=== PATIENT | female | born 1990 | race American Indian/Alaskan Native ===

== ENCOUNTER 2017-03-11 13:30 | Emergency (ER) | payer MEDICAID ==
[2017-03-11 14:36] LABS: Basophils % (Auto) 0.5 % (0.0-1.8); Eosinophils % (Auto) 1.2 % (0.0-4.3); Hemoglobin 13.3 gm/dl (10.1-14.3); Mean Corpuscular HGB Conc 33 % (30-34); Mean Corpuscular Hemoglobin 28 pg (28-32); Mean Corpuscular Volume 85 fl (79-97); Platelet Count 339 K/mm3 (140-440); Red Blood Count 4.83 M/mm3 (3.65-5.03); Red Cell Distribution Width 14.6 % (13.2-15.2); White Blood Count 4.3 K/mm3 (4.5-11.0)
[2017-03-11 14:59] LABS: Anion Gap 21 mmol/L; Blood Urea Nitrogen 15 mg/dL (7-17); Calcium 9.7 mg/dL (8.4-10.2); Carbon Dioxide 22 mmol/L (22-30); Glucose 80 mg/dL (65-100); Potassium 3.8 mmol/L (3.6-5.0); Sodium 139 mmol/L (137-145)
--- NOTE | 2017-03-11 15:43 | Cat Scan Report ---
CT HEAD WITHOUT CONTRAST: HISTORY: Headache. Ventriculoperitoneal shunt is unchanged since 02/06/16. Left parietal portion of the shunt terminates in the right frontal horn. There is no evidence for hydrocephalus. The brain parenchyma attenuation is within normal limits. There is no evidence for hemorrhage, mass or extra-axial fluid collection. No areas of ischemia are appreciated on noncontrast CT. 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 The paranasal sinuses and mastoid air cells are clear. IMPRESSION: No acute intracranial process. No significant change since 02/06/16.
[2017-03-11] MEDS ORDERED: TYLENOL PO ONE (20:38)
[2017-03-11 20:39] VITALS: BP 147/88
== END 2017-03-12 01:15 | disposition left against medical advice (07) ==
LOC: ED 13:30
DX: R51 Headache (principal); Z53.21 Procedure and treatment not carried out due to patient leaving prior to being seen by health care provider
CPT/HCPCS: 36415; 70450; 80048; 84703; 85025

== ENCOUNTER 2017-03-12 13:56 | Emergency (ER) | payer MEDICAID ==
[2017-03-12 14:27] VITALS: BP 141/96
[2017-03-12] MEDS ORDERED: MOTRIN PO ONE (15:24)
[2017-03-12] MEDS ORDERED: DELTASONE PO ONE (15:24)
[2017-03-12] MEDS ORDERED: REGLAN PO ONE (15:24)
[2017-03-12] MEDS ORDERED: BENADRYL PO ONE (15:24)
--- NOTE | 2017-03-12 15:30 | Emergency Department Report ---
ED Headache HPI - General Chief Complaint: Headache Stated Complaint: HEADACHE/SHUNT Time Seen by Provider: 03/12/17 15:20 Source: patient, RN notes reviewed Exam Limitations: no limitations - History of Present Illness Initial Comments: pt is a 27 y/o aaf with hx of left side HRBP , since childhood, who presents for headache recurring for past week , hx of same intermittent for past 10 yrs previously treated with fioricet po prn headache, pt edvised 12/22 left side headache some location duration and intensity as other headaches of past, pt seen in ed for same on yesterday but have to leave with ride home, presents today for finish evaluation , there has been no change in symptoms x improvement in pain level from 02/21 to 12/22 there is no dizziness no lightheadedness no n/v no syncope. Quality: moderate, achy, sharp Head Injury Location: parietal Recent Head Trauma: no recent headache/trauma, frequent headaches, chronic headaches Modifying Factors: improves with: other (none) Associated Symptoms: denies: denies symptoms, confusion, fatigue, facial pain, fever/chills, flushing, loss of consciousness, nausea/vomiting, nasal congestion , nasal drainage, numbness in legs/feet, seizures, sinus infection, stiff neck, vision changes, weakness Allergies/Adverse Reactions: Allergies No Known Allergies Allergy (Verified 02/06/16 11:50) Home Medications: Ambulatory Orders Butalb/Acetaminophen/Caffeine [Fioricet 50-300-40 mg CAP] 1 cap PO Q8HR PRN #20 cap 02/06/16 Meclizine [Antivert] 25 mg PO TID PRN #20 tablet 02/06/16 Sulfamethoxazole/Trimethoprim [Bactrim DS TAB] 1 each PO BID #6 tablet 02/06/16 ED Review of Systems ROS: Stated complaint: HEADACHE/SHUNT Other details as noted in HPI Constitutional: denies: chills, fever Eyes: denies: eye pain, eye discharge, vision change ENT: as per HPI. denies: ear pain, throat pain, dental pain, congestion Respiratory: denies: cough, shortness of breath, wheezing Cardiovascular: as per HPI Endocrine: no symptoms reported Gastrointestinal: denies: abdominal pain, nausea, diarrhea Genitourinary: denies: urgency, dysuria, discharge Musculoskeletal: denies: back pain, joint swelling, arthralgia Skin: denies: rash, lesions Neurological: headache. denies: weakness, numbness, paresthesias, confusion, abnormal gait, vertigo Psychiatric: denies: anxiety, depression Hematological/Lymphatic: denies: easy bleeding, easy bruising ED Past Medical Hx - Past Medical History Previous Medical History?: Yes Hx Seizures: Yes Additional medical history: shunt placed on the left side of head - Surgical History Past Surgical History?: Yes Additional Surgical History: shunt - Social History Smoking Status: Never Smoker Substance Use Type: None - Medications Home Medications: Home Medications Medication Instructions Recorded Confirmed Last Taken Type Butalb/Acetaminophen/Caffeine 1 cap PO Q8HR PRN #20 cap 02/06/16 Unknown Rx [Fioricet 50-300-40 mg CAP] Meclizine [Antivert] 25 mg PO TID PRN #20 tablet 02/06/16 Unknown Rx Sulfamethoxazole/Trimethoprim 1 each PO BID #6 tablet 02/06/16 Unknown Rx [Bactrim DS TAB] ED Physical Exam - General Limitations: No Limitations General appearance: alert, in no apparent distress - Head Head exam: Present: atraumatic, normocephalic - Eye Eye exam: Present: normal appearance, PERRL, EOMI. Absent: scleral icterus, conjunctival injection, periorbital swelling, periorbital tenderness Pupils: Present: normal accommodation - ENT ENT exam: Present: mucous membranes moist, TM's normal bilaterally - Neck Neck exam: Present: normal inspection, full ROM. Absent: tenderness, lymphadenopathy, thyromegaly - Expanded Neck Exam Expanded Neck exam: Absent: tenderness, midline deformity, anterior neck swelling, thyroid mass, carotid bruit, tracheal deviation - Respiratory Respiratory exam: Present: normal lung sounds bilaterally. Absent: respiratory distress, chest wall tenderness - Cardiovascular Cardiovascular Exam: Present: regular rate, normal rhythm. Absent: systolic murmur, diastolic murmur, rubs, gallop - GI/Abdominal GI/Abdominal exam: Present: soft, normal bowel sounds - Rectal Rectal exam: Present: deferred - Extremities Exam Extremities exam: Present: normal inspection, full ROM, tenderness, normal capillary refill. Absent: pedal edema, joint swelling, calf tenderness - Back Exam Back exam: Present: normal inspection, full ROM, CVA tenderness (R), CVA tenderness (L). Absent: tenderness, muscle spasm, paraspinal tenderness, vertebral tenderness, rash noted - Neurological Exam Neurological exam: Present: alert, oriented X3, CN II-XII intact, normal gait, reflexes normal. Absent: motor sensory deficit - Psychiatric Psychiatric exam: Present: normal affect - Skin Skin exam: Present: warm, dry, intact, normal color. Absent: rash ED Course Vital Signs 03/12/17 14:23 Temperature 98.5 F Pulse Rate 94 H Respiratory 20 Rate Blood Pressure 141/96 O2 Sat by Pulse 100 Oximetry ED Medical Decision Making - Lab Data wbc, cbc, normal - Radiology Data Radiology results: report reviewed vp ad sales west shunt inact no acute intracranial process - Medical Decision Making pt is a a 27 y/o aaf with hx of chronic headaches who presents for headache for past week , this headache is similar to previous headaches , there is no fever no neck pain no n/v neuro exam unremarkable , perrla eomi conjunctivae pink moist, tm clear sinus: no pain no erythema no edema, neck: rom intact unrestricted left vp ad sales west shunt site no erythema no swelling no lesion no pain to palpation, headache reduced to 2/10 with benadryl, ibuprofen, prednisone,and reglan given in ed, plan dc to self with same rx, pt will follow up with neurology Dr. Slater, pt verbalized understanding of same Critical care attestation.: If time is entered above; I have spent that time in minutes in the direct care of this critically ill patient, excluding procedure time. ED Disposition Clinical Impression: Chronic cluster headache, intractable Headache Qualifiers: Headache type: cluster Headache chronicity pattern: chronic headache Intractability: intractable Qualified Code(s): G44.021 - Chronic cluster headache, intractable Disposition: DC-01 TO HOME OR SELFCARE Is pt being admited?: No Does the pt Need Aspirin: No Condition: Good Instructions: Cluster Headache (ED) Additional Instructions: follow up with Neurology Dr. Slater [phone] Referrals: PRIMARY CARE, [Primary Care Provider] - 3-5 Days Forms: Work/School Release Form(ED) Time of Disposition: 15:51
--- NOTE | 2017-03-13 01:03 | ED Elopement Review ---
ED Pt Elopement review - Call Back decision Pt Call Back Decision: No action required
== END 2017-03-12 16:01 | disposition home or self-care (01) ==
LOC: ED 13:56
DX: G44.021 Chronic cluster headache, intractable (principal); R56.9 Unspecified convulsions
CPT/HCPCS: 99282; J7512; Q0163

== ENCOUNTER 2017-09-23 09:48 | Emergency (ER) | payer MEDICAID ==
--- NOTE | 2017-09-23 13:08 | Emergency Department Report ---
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 Also needs her sleeping pills refilled: Nortriptyline 10 PO QHS. And she would like to have her shunt checked. She says that a couple of weeks ago she felt like her room was spinning , also has had new headaches as well, intermittent, had one this morning, says it was an 8, throbbing. She had to have her shunt replaced in 2017. Denies other symptoms. 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 No focal neurological symptoms. MSE screening note: Focused history and physical exam performed. Due to findings the following was ordered: ED Disposition for MSE Condition: Stable
[2017-09-23 14:00] LABS: Basophils % (Auto) 0.6 % (0.0-1.8); Eosinophils # (Auto) 0.1 K/mm3 (0.0-0.4); Hematocrit 36.5 % (30.3-42.9); Hemoglobin 11.6 gm/dl (10.1-14.3); Lymphocytes # (Auto) 2.3 K/mm3 (1.2-5.4); Lymphocytes % (Auto) 38.8 % (13.4-35.0); Mean Corpuscular HGB Conc 32 % (30-34); Mean Corpuscular Hemoglobin 27 pg (28-32); Mean Corpuscular Volume 85 fl (79-97); Monocytes # (Auto) 0.5 K/mm3 (0.0-0.8); Monocytes % (Auto) 8.1 % (0.0-7.3); Platelet Count 348 K/mm3 (140-440); Red Blood Count 4.27 M/mm3 (3.65-5.03); Red Cell Distribution Width 14.5 % (13.2-15.2)
[2017-09-23 14:09] LABS: Alanine Aminotransferase 9 units/L (7-56); Albumin 4.1 g/dL (3.9-5); BUN/Creatinine Ratio 26; Blood Urea Nitrogen 13 mg/dL (7-17); Calcium 8.9 mg/dL (8.4-10.2); Hemolysis Index 3
--- NOTE | 2017-09-23 14:13 | Emergency Department Report ---
ED Chest Pain HPI - General Chief Complaint: Chest Pain Stated Complaint: CHEST PAIN Time Seen by Provider: 09/23/17 13:01 Source: patient Mode of arrival: Ambulatory Limitations: No Limitations - History of Present Illness Initial Comments: States that she has been having chest pain described as dull, started a couple of weeks ago, intermittent, migrates from left to right, has a Sample Maker Hand shunt, used to take seizure medication but was taken off of it. Also needs her sleeping pills refilled: Nortriptyline 10 PO QHS. And she would like to have her shunt checked. She says that a couple of weeks ago she felt like her room was spinning , also has had new headaches as well, intermittent, had one this morning, says it was an 8, throbbing. She had to have her shunt replaced in 2017. Denies other symptoms. MD Complaint: chest pain Onset/Timin -: days(s) Onset: during rest, during exertion Pain Location: substernal Pain Radiation: LUE Severity: moderate Severity scale (0 -10): 5 Quality: sharp Consistency: intermittent Improves With: nothing Worsens With: exertion re: denies: nausea, vomting Other Symptoms: denies: cough, fever, syncope, rash, leg swelling, palpitations , burping Treatments Prior to Arrival: none Aspirin use within the Past 7 Days: (0) No - Related Data On Oral Contraceptives: No Previous Rx's Medication Instructions Recorded Last Taken Type Butalb/Acetaminophen/Caffeine 1 cap PO Q8HR PRN #20 cap 02/06/16 Unknown Rx [Fioricet 50-300-40 mg CAP] Meclizine [Antivert] 25 mg PO TID PRN #20 tablet 02/06/16 Unknown Rx Sulfamethoxazole/Trimethoprim 1 each PO BID #6 tablet 02/06/16 Unknown Rx [Bactrim DS TAB] Ibuprofen [Motrin 800 MG tab] 800 mg PO Q8HR PRN #30 tablet 03/12/17 Unknown Rx Metoclopramide [Reglan] 10 mg PO TID #30 tab 03/12/17 Unknown Rx diphenhydrAMINE [Benadryl CAP] 25 mg PO Q8HR PRN #30 capsule 03/12/17 Unknown Rx Cephalexin [Keflex] 500 mg PO BID #20 capsule 09/23/17 Unknown Rx traMADol [Ultram] 50 mg PO Q8HR PRN #15 tablet 09/23/17 Unknown Rx Allergies Allergy/AdvReac Type Severity Reaction Status Date / Time No Known Allergies Allergy Verified 02/06/16 11:50 Heart Score - HEART Score History: Slightly suspicious EKG: Normal Age: < 45 Risk factors: 1-2 risk factors Troponin: < normal limit HEART Score: 1 ED Review of Systems ROS: Stated complaint: CHEST PAIN Other details as noted in HPI Constitutional: denies: chills, fever Eyes: denies: eye pain, eye discharge, vision change ENT: denies: ear pain, throat pain Respiratory: shortness of breath. denies: cough, wheezing Cardiovascular: chest pain. denies: palpitations, dyspnea on exertion, edema, syncope, paroxysmal nocturnal dyspnea Endocrine: no symptoms reported Gastrointestinal: denies: abdominal pain, nausea, diarrhea Genitourinary: denies: urgency, dysuria, discharge Musculoskeletal: denies: back pain, joint swelling, arthralgia Skin: denies: rash, lesions Neurological: denies: headache, weakness, paresthesias Psychiatric: denies: anxiety, depression Hematological/Lymphatic: denies: easy bleeding, easy bruising ED Past Medical Hx - Past Medical History Previous Medical History?: Yes Hx Seizures: Yes Additional medical history: shunt placed on the left side of head - Surgical History Past Surgical History?: Yes Additional Surgical History: shunt - Social History Smoking Status: Never Smoker - Medications Home Medications: Home Medications Medication Instructions Recorded Confirmed Last Taken Type Butalb/Acetaminophen/Caffeine 1 cap PO Q8HR PRN #20 cap 02/06/16 Unknown Rx [Fioricet 50-300-40 mg CAP] Meclizine [Antivert] 25 mg PO TID PRN #20 tablet 02/06/16 Unknown Rx Sulfamethoxazole/Trimethoprim 1 each PO BID #6 tablet 02/06/16 Unknown Rx [Bactrim DS TAB] Ibuprofen [Motrin 800 MG tab] 800 mg PO Q8HR PRN #30 tablet 03/12/17 Unknown Rx Metoclopramide [Reglan] 10 mg PO TID #30 tab 03/12/17 Unknown Rx diphenhydrAMINE [Benadryl CAP] 25 mg PO Q8HR PRN #30 capsule 03/12/17 Unknown Rx Cephalexin [Keflex] 500 mg PO BID #20 capsule 09/23/17 Unknown Rx traMADol [Ultram] 50 mg PO Q8HR PRN #15 tablet 09/23/17 Unknown Rx ED Physical Exam - General Limitations: No Limitations General appearance: alert, in no apparent distress - Head Head exam: Present: atraumatic, normocephalic - Eye Eye exam: Present: normal appearance - ENT ENT exam: Present: mucous membranes moist - Expanded ENT Exam Expanded Mouth exam: Present: normal external inspection Teeth exam: Present: normal inspection Throat exam: Positive: normal inspection - Neck Neck exam: Present: normal inspection, full ROM. Absent: tenderness, meningismus, lymphadenopathy, thyromegaly - Expanded Neck Exam Expanded Neck exam: Absent: tenderness, midline deformity, anterior neck swelling, thyroid mass, carotid bruit, tracheal deviation - Respiratory Respiratory exam: Present: normal lung sounds bilaterally. Absent: respiratory distress, wheezes, rhonchi, stridor, chest wall tenderness - Cardiovascular Cardiovascular Exam: Present: regular rate, normal rhythm. Absent: systolic murmur, diastolic murmur, rubs, gallop - GI/Abdominal GI/Abdominal exam: Present: soft, normal bowel sounds. Absent: distended, tenderness, guarding, rebound, rigid, organomegaly, mass, bruit, pulsatile mass , hernia - Rectal Rectal exam: Present: deferred - Extremities Exam Extremities exam: Present: normal inspection - Back Exam Back exam: Present: normal inspection - Neurological Exam Neurological exam: Present: alert, oriented X3, CN II-XII intact, normal gait, reflexes normal - Psychiatric Psychiatric exam: Present: normal affect, normal mood - Skin Skin exam: Present: warm, dry, intact, normal color. Absent: rash ED Course Vital Signs 09/23/17 11:12 Temperature 98.5 F Pulse Rate 80 Respiratory 16 Rate Blood Pressure 118/83 O2 Sat by Pulse 100 Oximetry DALLAS score - Dallas Score Age > 65: (0) No Aspirin use within the Past 7 Days: (0) No 3 or more CAD Risk Factors: (0) No 2 or more Angina events in past 24 hrs: (0) No Known CAD with more than 50% Stenosis: (0) No Elevated Cardiac Markers: (0) No ST Deviation Greater than 0.5mm: (0) No DALLAS Score: 0 ED Medical Decision Making - Lab Data Result diagrams: 09/23/17 13:22 09/23/17 13:22 Laboratory Tests 09/23/17 09/23/17 09/23/17 13:22 13:22 14:15 WBC 6.0 RBC 4.27 Hgb 11.6 Hct 36.5 MCV 85 MCH 27 L MCHC 32 RDW 14.5 Plt Count 348 Lymph % (Auto) 38.8 H [place] % (Auto) 8.1 H Eos % (Auto) 1.0 Baso % (Auto) 0.6 Lymph # 2.3 [place] # 0.5 Eos # 0.1 Baso # 0.0 Seg Neutrophils % 51.5 Seg Neutrophils # 3.1 Sodium 138 Potassium 3.8 Chloride 99.9 Carbon Dioxide 26 Anion Gap 16 BUN 13 Creatinine 0.5 L Estimated GFR > 60 BUN/Creatinine Ratio 26 Glucose 82 Calcium 8.9 Total Bilirubin 0.30 AST 14 ALT 9 Alkaline Phosphatase 55 Troponin T < 0.010 Total Protein 7.7 Albumin 4.1 Albumin/Globulin Ratio 1.1 Urine Color Yellow Urine Turbidity Clear Urine pH 6.0 Ur Specific Art 1.024 Urine Protein <15 mg/dl Urine Glucose (UA) Neg Urine Ketones Neg Urine Blood Neg Urine Nitrite Neg Urine Bilirubin Neg Urine Urobilinogen 2.0 Ur Leukocyte Esterase Mod Urine WBC (Auto) 16.0 H Urine RBC (Auto) 8.0 U Epithel Cells (Auto) 3.0 Urine Bacteria (Auto) 1+ Urine Mucus Few Urine HCG, Qual Negative - EKG Data EKG shows normal: sinus rhythm Rate: normal - EKG Data When compared to previous EKG there are: no significant change Interpretation: no acute changes, normal EKG, unchanged when compared t, other ekg enterp by ed attending 09/23/17 17:09 - Radiology Data Radiology results: report reviewed, image reviewed interpreted by me: cxr: normal, ct head: no changes shunt intact. cxr: normal, ct head: no changes shunt intact. - Medical Decision Making There is a 27-year-old -[place] female with a history of hydrocephalus patient presents for increased headaches and intermittent chest pain states headache 4/10 radiating from left to right his headache is consistent with previous headaches same type location and duration same intensity placed on nortriptyline 10 mg hour sleep states that he had medications patient does have neurology follow-up in one week secondary complaint of chest pain chest pain described as 310 intermittent there is no shortness of breath no dizziness no nausea vomiting patient denies fevers chills no cough no lightheadedness or dizziness exam patient received NO 3 cranial nerves II through XII grossly intact there is no diplopia no photophobia no weakness left DOCTOR OF AUDIOLOGY shunt noted left lateral neck positive thrill and bruit there is no edema no lymphadenopathy no erythema no pain with palpation neck range of motion intact including chin to chest bilateral shoulders and her neck extension without pain there is no weakness no tingling no loss of bowel or bladder function chest pain noted CV S1 -S2 no MRG normal sinus rhythm per EKG no NSTEMI, EKG interpreted by ED attending lungs clear bilaterally no wheezing no rales no cracks crackles chest x-ray normal no infiltrates labs labs: CMP normal CBC normal hCG is negative UA negative for leukocytes, WBCs patient state chest pain totally relieved at this time headache is 1/10 there is no nausea vomiting no dizziness no lightheadedness patient is ambulatory gait is steady at this time plan: Treat for UTI NSAIDs when necessary headache follow with neurology as scheduled followed PCP in 2-3 days return to ED if symptoms worsen patient verbalizes understanding of discharge instructions patient will be DC'd home in stable condition at this time. Critical care attestation.: If time is entered above; I have spent that time in minutes in the direct care of this critically ill patient, excluding procedure time. ED Disposition Clinical Impression: UTI (urinary tract infection) Qualifiers: Urinary tract infection type: acute cystitis Hematuria presence: without hematuria Qualified Code(s): N30.00 - Acute cystitis without hematuria Headache Qualifiers: Headache type: unspecified Headache chronicity pattern: acute headache Intractability: not intractable Qualified Code(s): R51 - Headache Disposition: DC-01 TO HOME OR SELFCARE Is pt being admited?: No Does the pt Need Aspirin: No Condition: Good Instructions: Ventriculoperitoneal Shunt Placement for Hydrocephalus in Children (GEN), Acute Headache (ED), Urinary Tract Infection in Women (ED) Prescriptions: Cephalexin [Keflex] 500 mg PO BID #20 capsule traMADol [Ultram] 50 mg PO Q8HR PRN #15 tablet PRN Reason: Pain Referrals: PRIMARY CARE, [Primary Care Provider] - 3-5 Days [facility] [Outside] - 3-5 Days Forms: Work/School Release Form(ED) Time of Disposition: 17:22
[2017-09-23 14:29] LABS: Bacteria,Urine 1+ /HPF (Negative); Bilirubin,Urine NEG (Negative); Blood,Urine NEG (Negative); Color,Urine Yellow (Yellow); Mucus,Urine FEW /HPF; Nitrite,Urine NEG (Negative); Protein,Urine <15 mg/dL mg/dL (Negative)
[2017-09-23 14:30] LABS: HCG Qualitative,Urine Negative (Negative)
--- NOTE | 2017-09-23 15:49 | XRay Report ---
ROUTINE CHEST, TWO VIEWS: Chest pain PA and lateral views demonstrate the heart and mediastinal contour to be of normal size and shape. The lungs are clear and fully expanded and the soft tissues and bony structures are normal. IMPRESSION: Normal study.
--- NOTE | 2017-09-23 16:51 | Cat Scan Report ---
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 FINDINGS: No acute intra-axial or extra-axial hemorrhage is identified. There is no evidence of midline shift or mass effect. Ventricles are not enlarged There is a left posterior ventriculostomy tube with tip crossing the midline at the frontal horn of the right lateral ventricle. Diallo-white matter differentiation is intact. No acute parenchymal abnormalities seen. Bony calvarium is grossly intact. Visualized portions of the mastoids and paranasal sinuses are unremarkable. IMPRESSION: Ventriculostomy tube unchanged Stable appearance from prior exam. No acute abnormality seen.
[2017-09-23 17:31] VITALS: BP 113/86
== END 2017-09-23 17:41 | disposition home or self-care (01) ==
LOC: ED 09:48
DX: N30.00 Acute cystitis without hematuria (principal); R51 Headache
CPT/HCPCS: 36415; 70450; 71046; 80053; 81001; 81025; 84484; 85025; 93005; 93010

== ENCOUNTER 2019-06-11 13:00 | Emergency (ER) | payer MEDICAID ==
[2019-06-11 17:12] LABS: Alanine Aminotransferase 9 units/L (7-56); Albumin 4.6 g/dL (3.9-5); BUN/Creatinine Ratio 32; Blood Urea Nitrogen 16 mg/dL (7-17); Calcium 9.8 mg/dL (8.4-10.2); Hemolysis Index 21
[2019-06-11] MEDS ORDERED: levETIRAcetam 500 MG TAB PO ONE (17:19)
[2019-06-11 17:41] LABS: Hematocrit 38.8 % (30.3-42.9); Hemoglobin 12.3 gm/dl (10.1-14.3); Mean Corpuscular HGB Conc 32 % (30-34); Mean Corpuscular Volume 86 fl (79-97); Platelet Count 326 K/mm3 (140-440); Red Cell Distribution Width 15.1 % (13.2-15.2)
--- NOTE | 2019-06-11 18:07 | Emergency Department Report ---
HPI - HPI HPI: 29-year-old Meredith female presents to the emergency department via EMS with complaint of having some recent seizure-like activity. The patient has a history of hydrocephalus with a SUPPLEMENTAL NURSE shunt to the left side of her head. She is not currently on any seizure medication and has not been since she was a child. She says that she had a seizure while driving in a van, with her boss, from [place] yesterday. She then had another seizure last night and again this morning. Currently she is awake, oriented with complaints of some mild dizziness and a generalized headache. She has a primary care physician and a neurologist but has not seen them regarding his symptoms. She has not taken anything for her symptoms prior to presentation. <CHRISTOPHER REZA - Last Filed: 06/11/19 18:05> <LALIT BAUER - Last Filed: 06/11/19 21:02> - General Chief Complaint: Seizure Time Seen by Provider: 06/11/19 15:28 ED Past Medical Hx - Past Medical History Previous Medical History?: Yes Hx Seizures: Yes Additional medical history: shunt placed on the left side of head - Surgical History Past Surgical History?: Yes Additional Surgical History: SUPPLEMENTAL NURSE shunt - Social History Smoking Status: Never Smoker Substance Use Type: None <CHRISTOPHER REZA - Last Filed: 06/11/19 18:05> <LALIT BAUER - Last Filed: 06/11/19 21:02> - Medications Home Medications: Home Medications Medication Instructions Recorded Confirmed Last Taken Type Meclizine [Antivert] 25 mg PO TID PRN #20 tablet 02/06/16 Unknown Rx Ibuprofen [Motrin 800 MG tab] 800 mg PO Q8HR PRN #30 tablet 03/12/17 Unknown Rx Metoclopramide [Reglan] 10 mg PO TID #30 tab 03/12/17 Unknown Rx diphenhydrAMINE [Benadryl CAP] 25 mg PO Q8HR PRN #30 capsule 03/12/17 Unknown Rx Cephalexin [Keflex] 500 mg PO BID #20 capsule 09/23/17 Unknown Rx Fluticasone [Flonase] 1 spray NS QDAY #1 bottle 09/26/18 Unknown Rx Meclizine [Antivert] 25 mg PO TID PRN #12 tablet 09/26/18 Unknown Rx Ondansetron [Zofran Odt] 4 mg PO Q8HR PRN #10 tab.rapdis 09/26/18 Unknown Rx levETIRAcetam [Keppra TAB] 500 mg PO BID #60 tablet 06/11/19 Unknown Rx ED Review of Systems ROS: Stated complaint: SUDO SEIZURES Other details as noted in HPI Comment: All other systems reviewed and negative Constitutional: denies: chills, fever Eyes: denies: eye pain, vision change Respiratory: denies: shortness of breath Cardiovascular: denies: chest pain Gastrointestinal: denies: abdominal pain, vomiting Musculoskeletal: denies: back pain, arthralgia Neurological: headache. denies: weakness, numbness, paresthesias, abnormal gait <CHRISTOPHER REZA - Last Filed: 06/11/19 18:05> ROS: Stated complaint: SUDO SEIZURES Other details as noted in HPI <LALIT BAUER - Last Filed: 06/11/19 21:02> Physical Exam - Physical Exam Vital Signs: Vital Signs 06/11/19 13:25 Temperature 98.2 F Pulse Rate 62 Respiratory 20 Rate Blood Pressure 146/81 O2 Sat by Pulse 99 Oximetry Physical Exam: GENERAL: The patient is well-developed well-nourished. HENT: Normocephalic. Atraumatic. Patient has moist mucous membranes. EYES: Extraocular motions are intact. Pupils equal reactive to light bilaterally. NECK: Supple. Trachea is midline. CHEST/LUNGS: Clear to auscultation. There is no respiratory distress noted. HEART/CARDIOVASCULAR: Regular. There is no tachycardia. There is no murmur. ABDOMEN: There is no abdominal distention. SKIN: Skin is warm and dry. NEURO: The patient is awake, alert, and oriented. The patient is cooperative. The patient has no focal neurologic deficits. Normal speech. Cranial nerves II through XII grossly intact. No pronator drift. No dysmetria. MUSCULOSKELETAL: There is no tenderness or deformity. There is no limitation range of motion. There is no evidence of acute injury. <CHRISTOPHER REZA - Last Filed: 06/11/19 18:05> - Physical Exam Vital Signs: Vital Signs 06/11/19 06/11/19 06/11/19 13:25 18:14 20:20 Temperature 98.2 F 98.2 F Pulse Rate 62 84 Respiratory 20 18 18 Rate Blood Pressure 146/81 Blood Pressure 123/78 [Left] O2 Sat by Pulse 99 100 99 Oximetry <LALIT BAUER - Last Filed: 06/11/19 21:02> ED Course Vital Signs 06/11/19 13:25 Temperature 98.2 F Pulse Rate 62 Respiratory 20 Rate Blood Pressure 146/81 O2 Sat by Pulse 99 Oximetry <CHRISTOPHER REZA - Last Filed: 06/11/19 18:05> Vital Signs 06/11/19 06/11/19 06/11/19 13:25 18:14 20:20 Temperature 98.2 F 98.2 F Pulse Rate 62 84 Respiratory 20 18 18 Rate Blood Pressure 146/81 Blood Pressure 123/78 [Left] O2 Sat by Pulse 99 100 99 Oximetry - Reevaluation(s) Reevaluation #1: 06/11/19 20:58 The patient is reassessed. No convulsive events noted while in the department. She is noted multiple times to be eating, and to be playing on a side of the phone. She is clinically sober at this time, and walks with a steady gait. She reports that she's had for convulsive events of this month. She knows that she has a private neurologist, but cannot specifically recall his or her name. She states that she is not taking seizure medications at this time. Patient will be started on Keppra. She is counseled to closely follow up with an outpatient neurology specialist. She is counseled to not drive or operate motor vehicles for the next 6 months. The patient has verbalized understanding. The patient does not appear to be in any acute distress at this time. <LALIT BAUER - Last Filed: 06/11/19 21:02> ED Medical Decision Making - Lab Data Result diagrams: 06/11/19 16:16 06/11/19 16:16 <CHRISTOPHER REZA - Last Filed: 06/11/19 18:05> - Lab Data Result diagrams: 06/11/19 16:16 06/11/19 16:16 Vital Signs 06/11/19 06/11/19 06/11/19 13:25 18:14 20:20 Temperature 98.2 F 98.2 F Pulse Rate 62 84 Respiratory 20 18 18 Rate Blood Pressure 146/81 Blood Pressure 123/78 [Left] O2 Sat by Pulse 99 100 99 Oximetry Lab Results 06/11/19 06/11/19 06/11/19 Range/Units 16:16 16:16 16:16 WBC 6.1 (4.5-11.0) K/mm3 RBC 4.50 (3.65-5.03) M/mm3 Hgb 12.3 (10.1-14.3) gm/dl Hct 38.8 (30.3-42.9) % MCV 86 (79-97) fl MCH 27 L (28-32) pg MCHC 32 (30-34) % RDW 15.1 (13.2-15.2) % Plt Count 326 (140-440) K/mm3 Lymph % (Auto) Tail Board Man [place] % (Auto) Tail Board Man Eos % (Auto) Tail Board Man Baso % (Auto) Tail Board Man Lymph # Tail Board Man [place] # Tail Board Man Eos # Tail Board Man Baso # Tail Board Man Add Manual Diff Complete Total Counted 100 Seg Neutrophils % Tail Board Man Seg Neuts % (Manual) 47.0 (40.0-70.0) % Band Neutrophils % 0 % Lymphocytes % (Manual) 44.0 H (13.4-35.0) % Reactive Lymphs % (Man) 0 % Monocytes % (Manual) 8.0 H (0.0-7.3) % Eosinophils % (Manual) 1.0 (0.0-4.3) % Basophils % (Manual) 0 (0.0-1.8) % Metamyelocytes % 0 % Myelocytes % 0 % Promyelocytes % 0 % Blast Cells % 0 % Nucleated RBC % Not Reportable Seg Neutrophils # Tail Board Man Seg Neutrophils # Man 2.9 (1.8-7.7) K/mm3 Band Neutrophils # 0.0 K/mm3 Lymphocytes # (Manual) 2.7 (1.2-5.4) K/mm3 Abs React Lymphs (Man) 0.0 K/mm3 Monocytes # (Manual) 0.5 (0.0-0.8) K/mm3 Eosinophils # (Manual) 0.1 (0.0-0.4) K/mm3 Basophils # (Manual) 0.0 (0.0-0.1) K/mm3 Metamyelocytes # 0.0 K/mm3 Myelocytes # 0.0 K/mm3 Promyelocytes # 0.0 K/mm3 Blast Cells # 0.0 K/mm3 WBC Morphology Not Reportable Hypersegmented Neuts Not Reportable Hyposegmented Neuts Not Reportable Hypogranular Neuts Not Reportable Smudge Cells Not Reportable Toxic Granulation Not Reportable Toxic Vacuolation Not Reportable Dohle Bodies Not Reportable Pelger-Huet Anomaly Not Reportable Xochitl Rods Not Reportable Platelet Estimate Consistent w auto Clumped Platelets Not Reportable Plt Clumps, EDTA Not Reportable Large Platelets Not Reportable Giant Platelets Not Reportable Platelet Satelliting Not Reportable Plt Morphology Comment Not Reportable RBC Morphology Normal Dimorphic RBCs Not Reportable Polychromasia Not Reportable Hypochromasia Not Reportable Poikilocytosis Not Reportable Anisocytosis Not Reportable Microcytosis Not Reportable Macrocytosis Not Reportable Spherocytes Not Reportable Pappenheimer Bodies Not Reportable Sickle Cells Not Reportable Target Cells Not Reportable Tear Drop Cells Not Reportable Ovalocytes Not Reportable Helmet Cells Not Reportable Joseph-[place] Bodies Not Reportable [place] Rings Not Reportable Gail Cells Not Reportable Bite Cells Not Reportable Crenated Cell Not Reportable Elliptocytes Not Reportable Acanthocytes (Spur) Not Reportable Rouleaux Not Reportable Hemoglobin C Crystals Not Reportable Schistocytes Not Reportable Malaria parasites Not Reportable Kam Bodies Not Reportable Hem Pathologist Commnt No Sodium 137 (137-145) mmol/L Potassium 4.3 (3.6-5.0) mmol/L Chloride 103.8 (98-107) mmol/L Carbon Dioxide 18 L (22-30) mmol/L Anion Gap 20 mmol/L BUN 16 (7-17) mg/dL Creatinine 0.5 L (0.7-1.2) mg/dL Estimated GFR > 60 ml/min BUN/Creatinine Ratio 32 % Glucose 84 (65-100) mg/dL Calcium 9.8 (8.4-10.2) mg/dL Magnesium (1.7-2.3) mg/dL Total Bilirubin 0.30 (0.1-1.2) mg/dL AST 16 (5-40) units/L ALT 9 (7-56) units/L Alkaline Phosphatase 50 (35-129) units/L Total Creatine Kinase (30-135) units/L Total Protein 8.0 (6.3-8.2) g/dL Albumin 4.6 (3.9-5) g/dL Albumin/Globulin Ratio 1.4 % HCG, Qual Negative (Negative) 10/28/19 Range/Units 16:16 WBC (4.5-11.0) K/mm3 RBC (3.65-5.03) M/mm3 Hgb (10.1-14.3) gm/dl Hct (30.3-42.9) % MCV (79-97) fl MCH (28-32) pg MCHC (30-34) % RDW (13.2-15.2) % Plt Count (140-440) K/mm3 Lymph % (Auto) [place] % (Auto) Eos % (Auto) Baso % (Auto) Lymph # [place] # Eos # Baso # Add Manual Diff Total Counted Seg Neutrophils % Seg Neuts % (Manual) (40.0-70.0) % Band Neutrophils % % Lymphocytes % (Manual) (13.4-35.0) % Reactive Lymphs % (Man) % Monocytes % (Manual) (0.0-7.3) % Eosinophils % (Manual) (0.0-4.3) % Basophils % (Manual) (0.0-1.8) % Metamyelocytes % % Myelocytes % % Promyelocytes % % Blast Cells % % Nucleated RBC % Seg Neutrophils # Seg Neutrophils # Man (1.8-7.7) K/mm3 Band Neutrophils # K/mm3 Lymphocytes # (Manual) (1.2-5.4) K/mm3 Abs React Lymphs (Man) K/mm3 Monocytes # (Manual) (0.0-0.8) K/mm3 Eosinophils # (Manual) (0.0-0.4) K/mm3 Basophils # (Manual) (0.0-0.1) K/mm3 Metamyelocytes # K/mm3 Myelocytes # K/mm3 Promyelocytes # K/mm3 Blast Cells # K/mm3 WBC Morphology Hypersegmented Neuts Hyposegmented Neuts Hypogranular Neuts Smudge Cells Toxic Granulation Toxic Vacuolation Dohle Bodies Pelger-Huet Anomaly Xochitl Rods Platelet Estimate Clumped Platelets Plt Clumps, EDTA Large Platelets Giant Platelets Platelet Satelliting Plt Morphology Comment RBC Morphology Dimorphic RBCs Polychromasia Hypochromasia Poikilocytosis Anisocytosis Microcytosis Macrocytosis Spherocytes Pappenheimer Bodies Sickle Cells Target Cells Tear Drop Cells Ovalocytes Helmet Cells Joseph-[place] Bodies [place] Rings Gail Cells Bite Cells Crenated Cell Elliptocytes Acanthocytes (Spur) Rouleaux Hemoglobin C Crystals Schistocytes Malaria parasites Kam Bodies Hem Pathologist Commnt Sodium (137-145) mmol/L Potassium (3.6-5.0) mmol/L Chloride (98-107) mmol/L Carbon Dioxide (22-30) mmol/L Anion Gap mmol/L BUN (7-17) mg/dL Creatinine (0.7-1.2) mg/dL Estimated GFR ml/min BUN/Creatinine Ratio % Glucose (65-100) mg/dL Calcium (8.4-10.2) mg/dL Magnesium 2.00 (1.7-2.3) mg/dL Total Bilirubin (0.1-1.2) mg/dL AST (5-40) units/L ALT (7-56) units/L Alkaline Phosphatase (35-129) units/L Total Creatine Kinase 96 (30-135) units/L Total Protein (6.3-8.2) g/dL Albumin (3.9-5) g/dL Albumin/Globulin Ratio % HCG, Qual (Negative) - EKG Data -: EKG Interpreted by Mn EKG shows normal: sinus rhythm Rate: normal - EKG Data 06/11/19 20:58 Today's EKG is unchanged from her EKG from September 2018 The EKG shows a sinus rhythm, 63 bpm, high left ventricular voltage, QTC is prolonged, the EKG is not consistent with ST elevation myocardial infarction. - Radiology Data Radiology results: report reviewed, image reviewed Print Report Referring Physician: CHRISTOPHER REZA Patient Name: ANDREA BALDWIN Date of : 1990 Sex: Female Report Date: 2019-06-11 Report Status: Finalized Findings [facility] [address] [place] [address] Cat Scan Report Signed Patient: ANDREA BALDWIN MR#: [id number] : 1990 Acct:[id number] Age/Sex: 29 / F ADM Date: 06/11/19 Loc: ED Attending Dr: Ordering Physician: CHRISTOPHER REZA DO Date of Service: 06/11/19 Procedure(s): CT head/brain wo con Accession Number(s): [id number] cc: CHRISTOPHER REZA DO CT head/brain wo con INDICATION / CLINICAL INFORMATION: 29 years Female; Headache, hx of seizures, SUPPLEMENTAL NURSE Shunt. TECHNIQUE: Routine CT head without contrast. All CT scans at this location are performed using CT dose reduction for ALARA by means of automated exposure control. COMPARISON: The study is compared to the previous CT of 09/26/2018. FINDINGS: BRAIN / INTRACRANIAL CONTENTS: The posterior left ventricular shunt remains in place with the distal tip directed along the anterior right lateral ventricle. There is continued a decompression of the left lateral ventricle which correlates with the previous CT. There is mild relative prominence of the posterior right lateral ventricle which is also unchanged. 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 There is no CT evidence of acute intracranial hemorrhage or developing mass effect at. ORBITS: No significant abnormality of visualized orbits. SINUSES / MASTOIDS: No significant abnormality the visualized paranasal sinuses or mastoid air cells. CRANIOCERVICAL JUNCTION: No significant abnormality. ADDITIONAL FINDINGS: None. IMPRESSION: 1. The ventricular shunt via left posterior approach remains in similar position with continued decompression of the ventricular system as described. 2. 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 3. There is no CT evidence of acute intracranial hemorrhage. Signer Name: Lalit Wagner MD Signed: 06/11/2019 6:34 PM Workstation Name: [id number] Transcribed By: MR Dictated By: Lalit Wagner MD Electronically Authenticated By: Lalit Wagner MD Signed Date/Time: 06/11/19 183 <LALIT BAUER - Last Filed: 06/11/19 21:02> Critical care attestation.: If time is entered above; I have spent that time in minutes in the direct care of this critically ill patient, excluding procedure time. <CHRISTOPHER REZA - Last Filed: 06/11/19 18:05> Critical care attestation.: If time is entered above; I have spent that time in minutes in the direct care of this critically ill patient, excluding procedure time. <LALIT BAUER - Last Filed: 06/11/19 21:02> ED Disposition <CHRISTOPHER REZA - Last Filed: 06/11/19 18:05> Is pt being admited?: No Does the pt Need Aspirin: No <LALIT BAUER - Last Filed: 06/11/19 21:02> Clinical Impression: History of convulsions Disposition: DC-01 TO HOME OR SELFCARE Condition: Stable Additional Instructions: Take seizure medication as directed. Do not drive or operate motor vehicles for the next 6 months, or until cleared to do so by either primary care doctor or neurology doctor. Recommend following up with the primary care doctor or neurology specialist within the next 7-10 days for complaint of convulsion and/or seizures. It is important to take seizure medication as directed, as noncompliance with seizure medication may result in breakthrough seizure, which may lead to , disability, paralysis, permanent loss of quality of life. Avoid consumption of marijuana, and inhalational recreational substances, and avoid consumption of alcohol. Avoid secondhand exposure to marijuana, and other inhalational drugs, as this may lead to the patient being more susceptible to convulsions and/or seizures. Return to the emergency room right away with new, worsened, different symptoms, or symptoms not present on the initial emergency room evaluation. Referrals: GLORIA CASTILLO MD [Primary Care Provider] - 3-5 Days BAL HERNANDEZ MD [Referring] - 3-5 Days EVERARDO BARBOSA MD [Staff Physician] - 3-5 Days BENNETT LUCAS MD [Staff Physician] - 3-5 Days
--- NOTE | 2019-06-11 18:38 | Cat Scan Report ---
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 TECHNIQUE: Routine CT head without contrast. All CT scans at this location are performed using CT dos e reduction for ALARA by means of automated exposure control. COMPARISON: The study is compared to the previous CT of 09/26/2018. FINDINGS: BRAIN / INTRACRANIAL CONTENTS: The posterior left ventricular shunt remains in place with the distal tip directed along the anterior right lateral ventricle. There is continued a decompression of the le ft lateral ventricle which correlates with the previous CT. There is mild relative prominence of the posterior right lateral ventricle which is also unchanged. 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 There is no CT evidence of acute in tracranial hemorrhage or developing mass effect at. ORBITS: No significant abnormality of visualized orbits. SINUSES / MASTOIDS: No significant abnormality the visualized paranasal sinuses or mastoid air cells. CRANIOCERVICAL JUNCTION: No significant abnormality. ADDITIONAL FINDINGS: None. IMPRESSION: 1. The ventricular shunt via left posterior approach remains in similar position with continued decom pression of the ventricular system as described. 2. 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 3. There is no CT evidence of acute intracranial hemorrhage. Signer Name: Lalit aWgner MD Signed: 06/11/2019 6:34 PM Workstation Name: [id number]
[2019-06-11 19:05] LABS: Basophils % (Manual) 0 % (0.0-1.8); Platelet Estimate Consistent w Auto; RBC Morphology Normal; Total Cells Counted 100
[2019-06-11 20:34] VITALS: BP 123/78
== END 2019-06-11 21:05 | disposition home or self-care (01) ==
LOC: ED 13:00
DX: R56.9 Unspecified convulsions (principal); R42 Dizziness and giddiness; Z79.899 Other long term (current) drug therapy
CPT/HCPCS: 36415; 70450; 80053; 82550; 83735; 84703; 85007; 85025; 93005; 93010; 99284